=== PATIENT | male | born 1975 | race Caucasian/White ===

== ENCOUNTER 2020-08-25 11:44 | Emergency (ER) | payer MEDICAID ==
[~2020-08-25] VITALS: Ht 170.2 cm; Wt 68.0 kg
[2020-08-25 11:50] VITALS: BP 154/81
[2020-08-25] MEDS ORDERED: BACITRACIN ZINC/POLYMYXIN B OINT 30 GM TUBE TP SCH (13:22)
[2020-08-25 14:00] VITALS: BP 119/81
[2020-08-26] MEDS ORDERED: BACITRACIN ZINC/POLYMYXIN B OINT 30 GM TUBE TP SCH (09:00)
== END 2020-08-25 14:00 | disposition home or self-care (01) ==
LOC: MED 11:44
DX: B35.3 Tinea pedis (principal); Z88.5 Allergy status to narcotic agent; Z88.6 Allergy status to analgesic agent
CPT/HCPCS: 99283

== ENCOUNTER 2020-12-21 15:00 | Emergency (ER) | payer MEDICAID ==
[~2020-12-21] VITALS: Ht 170.2 cm; Wt 68.9 kg
[2020-12-21 15:40] VITALS: BP 132/86
[2020-12-21] MEDS ORDERED: cefTRIAXone 1,000 MG in LIDOCAINE MPF 1% 2.1 ML IM ONE (16:00)
--- NOTE | 2020-12-21 16:00 | NUR ---
45 Y/O MALE C/O SPIDER BITE TO LLQ X3DAYS. SKIN IS NOT INTACT, PUS AND ERYTHEMA NOTED TO SITE. PT DENIES N/V, DENIES FEVER/CHILLS, DENIES PAIN TO AREA. DENIES PMH ALLERGIES: HYDROCODONE
[2020-12-21] MEDS ORDERED: BACITRACIN OINT 500 UNITS/GM PKT TP ONE (16:05)
[2020-12-21] MEDS ORDERED: cefTRIAXone 1,000 MG VIAL ONE (16:12)
[2020-12-21] MEDS ORDERED: LIDOCAINE MPF 1% 5 ML ONE (16:13)
[2020-12-21] MEDS ORDERED: IBUP-2213 PO (16:35)
[2020-12-21] MEDS ORDERED: SULF-58 PO (16:35)
[2020-12-21 16:47] VITALS: BP 132/86
--- NOTE | 2020-12-21 16:47 | NUR ---
Patient discharged with v/s stable. Written and verbal after care instructions given and explained. Patient alert, oriented and verbalized understanding of instructions. Ambulatory with steady gait. All questions addressed prior to discharge. ID band removed. Patient advised to follow up with PMD. Rx of Bactrim DS, Ibuprofen given. Patient educated on indication of medication including possible reaction and side effects. Opportunity to ask questions provided and answered.
== END 2020-12-21 16:47 | disposition home or self-care (01) ==
LOC: MED 15:00
DX: L02.211 Cutaneous abscess of abdominal wall (principal); F17.210 Nicotine dependence, cigarettes, uncomplicated; Z88.5 Allergy status to narcotic agent; Z79.899 Other long term (current) drug therapy
CPT/HCPCS: 90471; 90715; 96372; 99284; J0696; J2001

== ENCOUNTER 2020-12-28 18:24 | Emergency (ER) | payer MEDICAID ==
[~2020-12-28] VITALS: Ht 170.2 cm; Wt 68.0 kg
[~2020-12-28 18:24] MED LIST: IBUP-2213 PO; SULF-58 PO
[2020-12-28 18:29] VITALS: BP 142/79
[2020-12-28 20:12] VITALS: BP 142/79
--- NOTE | 2020-12-28 20:12 | NUR ---
PATIENT LEFT WITHOUT BEING SEEN BY DR. YOUSSEF. NO FURTHER CARE PROVIDED FOR PATIENT.
== END 2020-12-28 20:12 | disposition left against medical advice (07) ==
LOC: MED 18:24
DX: R10.30 Lower abdominal pain, unspecified (principal); R11.0 Nausea; Z53.21 Procedure and treatment not carried out due to patient leaving prior to being seen by health care provider

== ENCOUNTER 2021-07-06 14:28 | Emergency (ER) | payer MEDICAID, OTHER ==
[~2021-07-06] VITALS: Ht 170.2 cm; Wt 68.0 kg
[2021-07-06 15:05] VITALS: BP 135/86
--- NOTE | 2021-07-06 15:10 | NUR ---
PT AMBULATED TO ER BED 7
--- NOTE | 2021-07-06 15:16 | NUR ---
PT AMBULATED TO RESTROOOM FOR URINE SAMPLE
--- NOTE | 2021-07-06 15:23 | NUR ---
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 HIS PAIN IS CONSTANT AND SHARP. ELISE
[2021-07-06] MEDS: KETOROLAC 60 MG/2 ML VIAL IM ONE (15:56)
[2021-07-06] MEDS ORDERED: ACET-8386 PO (16:58)
[2021-07-06] MEDS ORDERED: IBUP-2213 PO (16:58)
[2021-07-06] MEDS ORDERED: LID5T TP (16:58)
[2021-07-06 17:08] VITALS: BP 124/89
--- NOTE | 2021-07-06 17:09 | NUR ---
Patient discharged with v/s stable. Written and verbal after care instructions given and explained. Patient alert, oriented and verbalized understanding of instructions. Ambulatory with steady gait. All questions addressed prior to discharge. ID band removed. Patient advised to follow up with PMD. Rx of HYDROCODONE/ACETAMINOPHEN, IBUPROFEN, LIDOCAINE HYD given. Opportunity to ask questions provided and answered.
--- NOTE | 2021-07-06 17:10 | NUR ---
The patient's care was reviewed and supervised by Janice Cotter RN.
== END 2021-07-06 17:08 | disposition home or self-care (01) ==
LOC: MED 14:28
DX: S39.012A Strain of muscle, fascia and tendon of lower back, initial encounter (principal); X50.0XXA Overexertion from strenuous movement or load, initial encounter; Y92.89 Other specified places as the place of occurrence of the external cause; Y93.89 Activity, other specified; Y99.0 Civilian activity done for income or pay
CPT/HCPCS: 81002; 96372; 99283; J1885

== ENCOUNTER 2021-07-08 17:38 | Emergency (ER) | payer MEDICAID, OTHER ==
[~2021-07-08] VITALS: Ht 170.2 cm; Wt 68.0 kg
[~2021-07-08 17:38] MED LIST changes: +ACET-8386 PO; +LID5T TP
[2021-07-08 17:44] VITALS: BP 138/120
--- NOTE | 2021-07-08 17:54 | NUR ---
Patient wheelchair assisted to bed 7.
--- NOTE | 2021-07-08 18:11 | NUR ---
46 Y/O PT C/O N/V , ABD PAIN 05/09 STARTED YESTERDAY AFTER TAKING TYLENOL WITH CODINE. HE WAS HERE MONDAY FOR BACK PAIN 05/09 AND GOT THE MEDS. ELISE
[2021-07-08] MEDS ORDERED: ONDANSETRON 4 MG/2 ML VIAL IVP ONE (18:35)
[2021-07-08] MEDS ORDERED: NACL 0.9% 1,000 ML IV ONE (18:35)
--- NOTE | 2021-07-08 18:41 | NUR ---
LAB AT BEDSIDE FOR BLOOD DRAW
[2021-07-08 18:57] LABS: BASOPHILS % (AUTO) 0.2 % (0.0-2.0); EOSINOPHILS % (AUTO) 0.6 % (0.0-4.0); HEMATOCRIT 44.6 % (36-52); LYMPHOCYTES # (AUTO) 0.8 K/uL (2.0-11.5); LYMPHOCYTES % (AUTO) 11.2 % (20.5-51.1); MEAN CORPUSCULAR HEMOGLOBIN 29 pg (27-31); MEAN CORPUSCULAR HGB CONC 34 g/dL (33-37); MEAN CORPUSCULAR VOLUME 86.6 fL (80-94); MONOCYTES # (AUTO) 0.4 K/uL (0.8-1.0); MONOCYTES % (AUTO) 5.2 % (1.7-9.3); NEUTROPHILS # (AUTO) 6.1 K/uL (1.8-7.7); NEUTROPHILS % (AUTO) 82.8 % (42.2-75.2); PLATELET COUNT (AUTO) 341 K/uL (140-450); RED BLOOD CELL COUNT(AUTO) 5.16 MIL/uL (4.20-6.10); RED CELL DISTRIBUTION WIDTH 12.9 % (11.6-13.7); WHITE BLOOD COUNT (AUTO) 7.4 K/uL (4.8-10.8)
[2021-07-08] MEDS ORDERED: ONDANSETRON 4 MG TAB ONE (19:04)
[2021-07-08] MEDS: ONDANSETRON 4 MG ODT PO ONE (19:06)
--- NOTE | 2021-07-08 19:24 | NUR ---
GAVE REPORT TO SHERIE RUSSELL.
[2021-07-08 19:28] LABS: ALBUMIN 3.5 g/dL (3.4-5.0); CARBON DIOXIDE 28.3 mmol/L (21-32); CREATININE 0.8 mg/dL (0.6-1.3); MAGNESIUM 2.1 mg/dL (1.8-2.4); PHOSPHORUS 2.5 mg/dL (2.5-4.9); TOTAL BILIRUBIN 0.4 mg/dL (0.0-1.0)
[2021-07-08 19:36] LABS: ANION GAP 13.7 (8-16)
--- NOTE | 2021-07-08 19:48 | NUR ---
IV FLUIDS NOT GIVEN. PREVIOUS NURSES ATTEMPTED BUT PT COULD NOT TOLERATE .
[2021-07-08] MEDS ORDERED: ONDA-188 PO (19:53)
[2021-07-08 20:06] VITALS: BP 111/67
--- NOTE | 2021-07-08 20:06 | NUR ---
Patient discharged with v/s stable. Written and verbal after care instructions given and explained. Patient alert, oriented and verbalized understanding of instructions. Ambulatory with steady gait. All questions addressed prior to discharge. ID band removed. Patient advised to follow up with PMD. Rx of ZOFRAN ODT given. Opportunity to ask questions provided and answered.
== END 2021-07-08 20:06 | disposition home or self-care (01) ==
LOC: MED 17:38
DX: R11.10 Vomiting, unspecified (principal); R10.9 Unspecified abdominal pain; Z88.5 Allergy status to narcotic agent; Z79.899 Other long term (current) drug therapy
CPT/HCPCS: 36415; 80053; 83690; 83735; 84100; 85025; 99283; Q0162

== ENCOUNTER 2022-06-28 07:38 | Emergency (ER) | payer MEDICAID ==
[~2022-06-28] VITALS: Ht 170.2 cm; Wt 66.3 kg
[~2022-06-28 07:38] MED LIST changes: +ONDA-188 PO
[2022-06-28 07:43] VITALS: BP 130/75
--- NOTE | 2022-06-28 07:48 | NUR ---
ALEXI. HANDED ON URINE CUP.
--- NOTE | 2022-06-28 09:57 | NUR ---
C/O 8/10 CONSTANT EPIGASTRIC PAIN X LAST NIGHT. LAST BM NORMAL YESTERDAY. PMH:DENIES
--- NOTE | 2022-06-28 12:38 | NUR ---
PATIENT LEFT WITHOUT BEING SEEN BY DR. JOE. NO FURTHER CARE PROVIDED FOR PATIENT.
[2022-06-28 12:39] VITALS: BP 130/75
== END 2022-06-28 12:38 | disposition left against medical advice (07) ==
LOC: MED 07:38
DX: R10.13 Epigastric pain (principal); Z53.21 Procedure and treatment not carried out due to patient leaving prior to being seen by health care provider

== ENCOUNTER 2022-08-23 21:51 | Emergency (ER) | payer MEDICAID ==
[~2022-08-23] VITALS: Ht 170.2 cm; Wt 68.0 kg
[~2022-08-23 21:51] MED LIST changes: -ACET-8386 PO; +ACET-8905 PO
[2022-08-23 22:00] VITALS: BP 129/88
--- NOTE | 2022-08-23 22:05 | NUR ---
to bed ambulatory
--- NOTE | 2022-08-23 22:15 | NUR ---
Patient resting in bed, A/Ox4, chest rise and fall symmetrical, no s/s of distress
--- NOTE | 2022-08-23 22:16 | NUR ---
Dr. Connolly assessing patient.
[2022-08-23] MEDS ORDERED: KETOROLAC 60 MG/2 ML VIAL IM ONE ×2 (22:55→22:57)
[2022-08-23] MEDS ORDERED: IBUP-2213 PO (23:02)
[2022-08-23] MEDS ORDERED: LID5T TP (23:02)
[2022-08-23] MEDS ORDERED: TRAM50TA3 PO (23:02)
--- NOTE | 2022-08-23 23:10 | NUR ---
Patient resting in bed, A/Ox4, chest rise and fall symmetrical, no c/o pain or s/s of distress.
[2022-08-23 23:16] VITALS: BP 115/76
== END 2022-08-23 23:15 | disposition home or self-care (01) ==
LOC: MED 21:51
DX: S20.211A Contusion of right front wall of thorax, initial encounter (principal); Z79.899 Other long term (current) drug therapy; Z79.1 Long term (current) use of non-steroidal anti-inflammatories (NSAID); Z79.891 Long term (current) use of opiate analgesic; Z79.2 Long term (current) use of antibiotics; Z88.5 Allergy status to narcotic agent; V49.9XXA Car occupant (driver) (passenger) injured in unspecified traffic accident, initial encounter; Y93.89 Activity, other specified; Y92.410 Unspecified street and highway as the place of occurrence of the external cause; Y99.8 Other external cause status
CPT/HCPCS: 71101; 96372; 99283; J1885

== ENCOUNTER 2022-08-25 12:59 | Emergency (ER) | payer MEDICAID ==
[~2022-08-25] VITALS: Ht 170.2 cm; Wt 68.0 kg
[~2022-08-25 12:59] MED LIST changes: +TRAM50TA3 PO
--- NOTE | 2022-08-25 13:10 | NUR ---
BIB WHEELCHAIR TO ER BED 10
[2022-08-25 13:14] VITALS: BP 113/64
[2022-08-25] MEDS ORDERED: ONDANSETRON 4 MG/2 ML VIAL IVP ONE (13:25)
[2022-08-25] MEDS ORDERED: MORPHINE SULFATE 4 MG/ML SYR IVP ONE (13:25)
[2022-08-25] MEDS ORDERED: ONDANSETRON 4 MG/2 ML VIAL ONE (13:26)
--- NOTE | 2022-08-25 13:30 | NUR ---
47/M WALKED IN C/O MID ABD PAIN ONSET LAST NIGHT. DENIES VOMITING BUT REPORTS NAUSEA. DENIES DIARRHEA. DENIES TRAUMA. PT WAS SEEN RECENTLY FOR TC AND WAS DC. REPORTS 10/10 CONSTANT PAIN AT THIS TIME. 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 IV ESTABLISHED TO LEFT AC WITH 20G. PMH: DENIES
--- NOTE | 2022-08-25 13:38 | NUR ---
ONLINE TRADER AT BEDSIDE
[2022-08-25 13:51] LABS: BASOPHILS # (AUTO) 0.1 K/uL (0.00-0.22); BASOPHILS % (AUTO) 0.8 % (0.0-2.0); EOSINOPHILS # (AUTO) 0.1 K/uL (0-0.4); EOSINOPHILS % (AUTO) 1.2 % (0.0-4.0); HEMATOCRIT 42.7 % (36-52); HEMOGLOBIN 14.3 g/dL (12.0-18.0); LYMPHOCYTES # (AUTO) 1.5 K/uL (2.0-11.5); LYMPHOCYTES % (AUTO) 19.1 % (20.5-51.1); MEAN CORPUSCULAR HEMOGLOBIN 29 pg (27-31); MEAN CORPUSCULAR HGB CONC 33 g/dL (33-37); MEAN CORPUSCULAR VOLUME 87.1 fL (80-94); MONOCYTES # (AUTO) 0.5 K/uL (0.8-1.0); MONOCYTES % (AUTO) 6.7 % (1.7-9.3); NEUTROPHILS # (AUTO) 5.6 K/uL (1.8-7.7); NEUTROPHILS % (AUTO) 72.2 % (42.2-75.2); PLATELET COUNT (AUTO) 299 K/uL (140-450); RED BLOOD CELL COUNT(AUTO) 4.91 MIL/uL (4.20-6.10); RED CELL DISTRIBUTION WIDTH 13.1 % (11.6-13.7); WHITE BLOOD COUNT (AUTO) 7.8 K/uL (4.8-10.8)
[2022-08-25 14:06] VITALS: BP 126/74
[2022-08-25 14:21] LABS: PROTHROMBIN TIME 10.4 secs (10.8-13.4)
[2022-08-25 14:26] LABS: ALBUMIN 3.9 g/dL (3.4-5.0); ANION GAP 13.8 (8-16); CARBON DIOXIDE 25.9 mmol/L (21-32); CREATININE 0.8 mg/dL (0.6-1.3); POTASSIUM 3.7 mmol/L (3.5-5.1); TOTAL BILIRUBIN 0.5 mg/dL (0.0-1.0)
[2022-08-25] MEDS ORDERED: FAMO-90 PO (14:32)
[2022-08-25] MEDS ORDERED: ACET-10509 PO (14:32)
== END 2022-08-25 14:50 | disposition home or self-care (01) ==
LOC: MED 12:59
DX: R10.9 Unspecified abdominal pain (principal); R11.0 Nausea; Z79.899 Other long term (current) drug therapy; Z88.5 Allergy status to narcotic agent; V89.2XXA Person injured in unspecified motor-vehicle accident, traffic, initial encounter; Y93.89 Activity, other specified; Y92.89 Other specified places as the place of occurrence of the external cause; Y99.8 Other external cause status
CPT/HCPCS: 36415; 80053; 83690; 85025; 85610; 85730; 86886; 86900; 86901; 96374; 96375; 99284; J2270; J2405

== ENCOUNTER 2022-10-19 10:42 | Inpatient (IN) | payer MEDICAID, OTHER ==
[~2022-10-19] VITALS: Ht 170.2 cm; Wt 68.0 kg
[~2022-10-19 10:42] MED LIST changes: +ACET-10509 PO; +FAMO-90 PO
[2022-10-19 10:46] VITALS: BP 109/58
--- NOTE | 2022-10-19 10:58 | NUR ---
pt taken to bed 11 by amr
--- NOTE | 2022-10-19 11:29 | NUR ---
DR. BARRERA EVALUATING PATIENT AT BEDSIDE.
[2022-10-19] MEDS ORDERED: KETOROLAC 30 MG/ML VIAL IVP ONE (11:35)
[2022-10-19] MEDS ORDERED: DIPHENOXYLATE /ATROPINE 2.5 MG TAB PO ONE (11:35)
[2022-10-19] MEDS ORDERED: NACL 0.9% 1,000 ML IV SCH (11:35)
[2022-10-19 11:59] LABS: BASOPHILS % (AUTO) 0.4 % (0.0-2.0); EOSINOPHILS # (AUTO) 0.1 K/uL (0-0.4); EOSINOPHILS % (AUTO) 1.3 % (0.0-4.0); HEMATOCRIT 28.7 % (36-52); HEMOGLOBIN 9.3 g/dL (12.0-18.0); LYMPHOCYTES # (AUTO) 2.8 K/uL (2.0-11.5); MEAN CORPUSCULAR HEMOGLOBIN 29 pg (27-31); MEAN CORPUSCULAR HGB CONC 33 g/dL (33-37); MEAN CORPUSCULAR VOLUME 89.3 fL (80-94); MONOCYTES # (AUTO) 0.5 K/uL (0.8-1.0); MONOCYTES % (AUTO) 5.7 % (1.7-9.3); NEUTROPHILS # (AUTO) 5.2 K/uL (1.8-7.7); NEUTROPHILS % (AUTO) 60.6 % (42.2-75.2); PLATELET COUNT (AUTO) 280 K/uL (140-450); RED BLOOD CELL COUNT(AUTO) 3.21 MIL/uL (4.20-6.10); RED CELL DISTRIBUTION WIDTH 12.8 % (11.6-13.7); WHITE BLOOD COUNT (AUTO) 8.6 K/uL (4.8-10.8)
[2022-10-19 12:25] LABS: ANION GAP 14.1 (8-16); CARBON DIOXIDE 22.7 mmol/L (21-32); CREATININE 1.1 mg/dL (0.6-1.3); POTASSIUM 3.8 mmol/L (3.5-5.1); TOTAL BILIRUBIN 0.2 mg/dL (0.0-1.0)
[2022-10-19] MEDS ORDERED: PANTOPRAZOLE 40 MG INJ VIAL IVP ONE (13:10)
[2022-10-19] MEDS ORDERED: ZOLPIDEM 10 MG TAB PO PRN (13:20)
[2022-10-19] MEDS ORDERED: MAG SULF 2000 MG/WATER PREMIX 50 ML IV PRN (13:20)
[2022-10-19] MEDS ORDERED: POTASSIUM CHLORIDE 10 MEQ TABER PO PRN (13:20)
[2022-10-19] MEDS ORDERED: DOCUSATE SODIUM 100 MG GELCAP PO PRN (13:20)
[2022-10-19] MEDS ORDERED: LORazepam 2 MG/ML VIAL IVP PRN (13:20)
[2022-10-19] MEDS ORDERED: ONDANSETRON 4 MG/2 ML VIAL IVP PRN (13:20)
[2022-10-19] MEDS ORDERED: ACETAMINOPHEN 325 MG TAB PO PRN (13:20)
[2022-10-19] MEDS ORDERED: DEXTROSE 50% 50 ML SYR IVP PRN (13:25)
[2022-10-19] MEDS: NACL 0.9% 1,000 ML IV SCH ×2 (13:27→23:25)
--- NOTE | 2022-10-19 13:37 | NUR ---
Pt returned from CT.
--- NOTE | 2022-10-19 14:00 | NUR ---
PT RESTING IN BED, AWAKE. REPORTS NO PAIN OR DISCOMFORT. STARTED IVF NS @100MLS/HR, IV SITE IN RIGHT AC. IV SITE CLEAN/INTACT. SISTER AND BROTHER OF PT AT BEDSIDE. REQUESTS NURSE CALL AND REPORT ANY UPDATES ON PT. SPEEDY KAUR, EBEN VINCENT, WILL CONTINUE WITH CARE. Addendum: 10/19/22 at 1953 by DOMINICK HUNTER RN TIME CORRECTION. FOR 1600, NOT 1400.
--- NOTE | 2022-10-19 14:59 | NUR ---
Report given to receiving RN. VSS. Pt aware and agreeable to admission. Pt transported with no belongings via gurney.
--- NOTE | 2022-10-19 15:00 | NUR ---
RECEIVED REPORT FROM ER NURSE. PT ARRIVED TO MST UNIT AT 1500 VIA GURNEY. PT AOX4, AMBULATORY, ON RM AIR, IV TO RIGHT AC 22G, SALINE LOCK. NO SIGNS OF DISTRESS. PT REPORTS HAVING NO PAIN OR DISCOMFORT AT THIS TIME. 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 GIRLFRIEND WITH PT AT BEDSIDE, ALLISON . WILL CONTINUE TO MONITOR AND CONTINUE WITH CARE. BED IN LOWEST POSITION, 2 SIDE RAILS UP, CALL LIGHT PLACED WITHIN REACH.
[2022-10-19 18:17] LABS: BASOPHILS % (AUTO) 0.5 % (0.0-2.0); EOSINOPHILS % (AUTO) 0.5 % (0.0-4.0); HEMATOCRIT 24.8 % (36-52); HEMOGLOBIN 8.1 g/dL (12.0-18.0); LYMPHOCYTES # (AUTO) 3.1 K/uL (2.0-11.5); LYMPHOCYTES % (AUTO) 30.3 % (20.5-51.1); MEAN CORPUSCULAR HEMOGLOBIN 29 pg (27-31); MEAN CORPUSCULAR HGB CONC 33 g/dL (33-37); MEAN CORPUSCULAR VOLUME 88.1 fL (80-94); MONOCYTES # (AUTO) 0.5 K/uL (0.8-1.0); MONOCYTES % (AUTO) 4.6 % (1.7-9.3); NEUTROPHILS # (AUTO) 6.5 K/uL (1.8-7.7); NEUTROPHILS % (AUTO) 64.1 % (42.2-75.2); PLATELET COUNT (AUTO) 265 K/uL (140-450); RED BLOOD CELL COUNT(AUTO) 2.82 MIL/uL (4.20-6.10); RED CELL DISTRIBUTION WIDTH 12.7 % (11.6-13.7); WHITE BLOOD COUNT (AUTO) 10.1 K/uL (4.8-10.8)
--- NOTE | 2022-10-19 19:40 | NUR ---
ENDORSED PT TO NIGHTSHIFT NURSE FOR CONTINUITY OF CARE.
--- NOTE | 2022-10-19 19:42 | NUR ---
RECEIVED PATIENT FROM DAY SHIFT NURSE. PATIENT IS AWAKE ALERT VERBALLY RESPONSIVE. ABLE TO COMMUNICATE WITH HIS NEEDS. ON ROOM AIR. NO SOB NOTED. BREATHING EVEN UNLABORED. AMBULATORY. NO COMPLAINTS OF PAIN AT THIS TIME. CALL LIGHT WITHIN REACH. BED WHEELS LOCKED. GIRLFRIEND AT BEDSIDE.
[2022-10-19 20:00] VITALS: BP 100/56
[2022-10-19] MEDS: BLOOD GLUCOSE MONITORING 1 DEV DEV FS SCH (20:23)
--- NOTE | 2022-10-19 20:29 | NUR ---
PATIENT BLOOD SUGAR WAS 84. PT IS NPO. DR CAMARGO MADE AWARE NO NEW ORDER.
[2022-10-20] VITALS: BP 105/64
[2022-10-20 04:00] VITALS: BP 94/57
[2022-10-20] MEDS: BLOOD GLUCOSE MONITORING 1 DEV DEV FS SCH (06:44)
--- NOTE | 2022-10-20 06:44 | NUR ---
CHECKED BLOOD SUGAR WAS 112, NO INSULIN COVERAGE NEEDED.
--- NOTE | 2022-10-20 07:10 | NUR ---
ENDORSED TO AM SHIFT NURSE FOR CONTINUITY OF CARE.
--- NOTE | 2022-10-20 07:12 | NUR ---
RECEIVED REPORT FROM NIGHTSHIFT NURSE. PT IS ASLEEP IN BED, WOKE TO NAME AND TOUCH. PT RETURNED TO SLEEP. IV TO RIGHT AC 22G, RUNNING NS AT 100ML/HR, CLEAN, INTACT. PT IS ON RM AIR. NO SIGNS OF DISTRESS. BED IN LOWEST POSITION, 2 SIDE RAILS UP, CALL LIGHT PLACED WITHIN REACH.
[2022-10-20 07:35] LABS: BASOPHILS % (AUTO) 0.6 % (0.0-2.0); EOSINOPHILS # (AUTO) 0.1 K/uL (0-0.4); EOSINOPHILS % (AUTO) 1.5 % (0.0-4.0); HEMATOCRIT 22.4 % (36-52); HEMOGLOBIN 7.4 g/dL (12.0-18.0); LYMPHOCYTES # (AUTO) 2.2 K/uL (2.0-11.5); LYMPHOCYTES % (AUTO) 30.3 % (20.5-51.1); MEAN CORPUSCULAR HEMOGLOBIN 30 pg (27-31); MEAN CORPUSCULAR HGB CONC 33 g/dL (33-37); MEAN CORPUSCULAR VOLUME 88.5 fL (80-94); MONOCYTES # (AUTO) 0.4 K/uL (0.8-1.0); MONOCYTES % (AUTO) 5.2 % (1.7-9.3); NEUTROPHILS # (AUTO) 4.5 K/uL (1.8-7.7); NEUTROPHILS % (AUTO) 62.4 % (42.2-75.2); PLATELET COUNT (AUTO) 229 K/uL (140-450); RED BLOOD CELL COUNT(AUTO) 2.53 MIL/uL (4.20-6.10); RED CELL DISTRIBUTION WIDTH 12.7 % (11.6-13.7); WHITE BLOOD COUNT (AUTO) 7.2 K/uL (4.8-10.8)
[2022-10-20 07:52] LABS: ANION GAP 9.4 (8-16); CARBON DIOXIDE 27.6 mmol/L (21-32); CREATININE 0.8 mg/dL (0.6-1.3)
[2022-10-20 08:00] VITALS: BP 92/45
[2022-10-20] MEDS ORDERED: PANTOPRAZOLE 40 MG INJ VIAL IVP SCH ×2 (09:00→10:55)
--- NOTE | 2022-10-20 09:18 | NUR ---
PATIENT HAS BEEN SCREENED AND CATEGORIZED MODERATE NUTRITION RISK. PATIENT WILL BE SEEN WITHIN 3-5 DAYS OF ADMISSION. / REVIEWED BY MARY DOS SANTOS RD
[2022-10-20] MEDS: NACL 0.9% 1,000 ML IV SCH (09:56)
[2022-10-20] MEDS ORDERED: MIDAZOLAM 5 MG/5 ML VIAL ONE (11:19)
[2022-10-20] MEDS ORDERED: fentaNYL citrate 0.05 MG/ML VIAL ONE (11:19)
[2022-10-20] MEDS ORDERED: diphenhydrAMINE 50 MG/ML VIAL ONE (11:19)
--- NOTE | 2022-10-20 11:48 | NUR ---
DC PLANNING ATTEMPTED TO MEET PT AT BEDSIDE TO COMPLETE ASSESSMENT, HOWEVER, PT NOT IN ROOM- PT TAKEN BY RADIOLOGY.
[2022-10-20] MEDS ORDERED: MIDAZOLAM 2 MG/2 ML VIAL IVP ONE (12:35)
[2022-10-20] MEDS ORDERED: fentaNYL citrate 0.05 MG/ML VIAL IVP ONE (12:35)
[2022-10-20] MEDS ORDERED: SODIUM FERRIC GLUCONATE 125 MG in NACL 0.9% 100 ML IV SCH (14:00)
== END 2022-10-20 17:00 | disposition left against medical advice (07) | DRG 241 ==
LOC: MED 10:42 → MTU 13:19
PROVIDERS: ADMIT Family Medicine; ATTEND Family Medicine
PROC: 0DB68ZX Excision of Stomach, Via Natural or Artificial Opening Endoscopic, Diagnostic (ICD-10-PCS; principal; 2022-10-20 14:10)
PROC: 0W3P8ZZ Control Bleeding in Gastrointestinal Tract, Via Natural or Artificial Opening Endoscopic (ICD-10-PCS; 2022-10-20 14:10)
DX: K25.4 Chronic or unspecified gastric ulcer with hemorrhage (principal); E46 Unspecified protein-calorie malnutrition; E87.1 Hypo-osmolality and hyponatremia; E83.51 Hypocalcemia; I95.9 Hypotension, unspecified; K26.4 Chronic or unspecified duodenal ulcer with hemorrhage; D64.9 Anemia, unspecified; R19.7 Diarrhea, unspecified; R73.9 Hyperglycemia, unspecified; Z68.23 Body mass index [BMI] 23.0-23.9, adult; Z20.822 Contact with and (suspected) exposure to COVID-19; F17.210 Nicotine dependence, cigarettes, uncomplicated; E88.09 Other disorders of plasma-protein metabolism, not elsewhere classified; Z88.5 Allergy status to narcotic agent
CPT/HCPCS: 36415; 80048; 80053; 82150; 82948; 83690; 83735; 85025; 86677; 87081; 96361; 96374; 96375; 99291; C9113; J1200; J1885; J2250; J2916; J3010

== ENCOUNTER 2023-03-04 19:08 | Emergency (ER) | payer MEDICAID ==
[~2023-03-04] VITALS: Ht 170.2 cm; Wt 65.5 kg
[2023-03-04 19:33] VITALS: BP 137/79; PULSE 95; RESP 18; TEMP 98.3; O2SAT 94
[2023-03-04 22:05] VITALS: BP 137/79; PULSE 95; RESP 18; TEMP 98.3; O2SAT 94
--- NOTE | 2023-03-04 22:05 | NUR ---
PATIENT ELOPED FROM FACILITY. DISCHARGE INSTRUCTIONS NOT GIVEN TO PATIENT. DR. OVERTON NOTIFIED.
== END 2023-03-04 22:05 | disposition left against medical advice (07) ==
LOC: MED 19:08
DX: M79.642 Pain in left hand (principal); Z79.899 Other long term (current) drug therapy
CPT/HCPCS: 99281

== ENCOUNTER 2023-10-24 17:15 | Emergency (ER) | payer MEDICAID ==
[~2023-10-24] VITALS: Ht 170.2 cm; Wt 68.0 kg
[2023-10-24 17:28] VITALS: BP 152/86; PULSE 76; RESP 19; TEMP 97.8; O2SAT 100
[2023-10-24] MEDS ORDERED: ALUMINUM HYD/MAG/SIMETHICONE 30 ML UDC ONE (18:38)
[2023-10-24] MEDS ORDERED: DICYCLOMINE HCL LIQUID 10 MG/5 ML UDC ONE (18:38)
[2023-10-24] MEDS ORDERED: OMEP40EC24 PO (18:48)
[2023-10-24] MEDS ORDERED: ONDA8TAB87 PO (18:48)
[2023-10-24] MEDS: DICYCLOMINE HCL LIQUID 20 MG, ALUMINUM HYD/MAG/SIMETHICONE 30 ML, LIDOCAINE VISCOUS 2% ... PO ONE (18:48)
[2023-10-24] MEDS ORDERED: IBUP-2213 PO (18:48)
== END 2023-10-24 19:03 | disposition home or self-care (01) ==
LOC: MED 17:15
DX: R10.13 Epigastric pain (principal); Z88.8 Allergy status to other drugs, medicaments and biological substances; Z79.899 Other long term (current) drug therapy
CPT/HCPCS: 99283